=== PATIENT | male | born 1995 | race African-American/Black ===

== ENCOUNTER → 2018-12-22 | Outpatient (CLI) | payer OTHER ==
--- NOTE | 2018-12-22 09:36 | RAD ---
Examination: CT MAXILLOFACIAL WO CONTRAST History: Right-sided fracture follow-up. Comparison/Correlation: None Findings: Axial images of the maxillofacial structures were provided. Sagittal and coronal reformatted images were provided. Globes and optic nerves are unremarkable. Depressed fracture involving the right anterior maxillary sinus wall is notable. Posterior displacement by at least 1 cm present. Fracture deformity of the lateral wall of the left maxillary sinus is evident with displaced fragments. Right inferior orbital wall fracture with comminuted fragments at the medial aspect is present. Inferior displacement of fragments by up to 0.67 are noted. Extension of orbital fat into the fracture is present. Inferior rectus muscle does not extend into the fracture. Fracture with lateral angulation of the right zygomatic bone is identified. Left facial bones are unremarkable. Maxillofacial is unremarkable. Decreased volume of the right maxillary sinus related to fractures and opacification of the right maxillary sinus is noted. No significant paranasal sinus opacification is otherwise. Mastoid air cells are unremarkable. Temporomandibular joints are unremarkable. No radiopaque foreign body. Impression: Right maxillary sinus, orbital, and zygomatic fractures are present. No significant callus formation. No significant soft tissue swelling. Correlate with previous exams if available. PQRS Compliance Statement: One or more of the following individualized dose reduction techniques were utilized for this examination: 1. Automated exposure control 2. Adjustment of the mA and/or kV according to patient size 3. Use of iterative reconstruction technique Electronically signed by: David Joy MD (12/22/2018 9:33 AM) [facility]
== END | disposition home or self-care (01) ==
LOC: CT 08:52 → EEVIPCON 09:30
PROVIDERS: ATTEND Family Medicine
DX: S02.40ED Zygomatic fracture, right side, subsequent encounter for fracture with routine healing (principal); S02.81XD Fracture of other specified skull and facial bones, right side, subsequent encounter for fracture with routine healing; X58.XXXD Exposure to other specified factors, subsequent encounter
CPT/HCPCS: 70486